=== PATIENT | female | born 1980 | race Caucasian/White ===

== ENCOUNTER 2016-03-16 10:56 | Emergency (ER) | payer MEDICAID ==
[2016-03-16 11:14] VITALS: BP 127/66
[2016-03-16] MEDS ORDERED: KETOROLAC TROMETHAMINE 60 MG/2 ML VIAL IM ONE ×2 (12:37→12:40)
--- NOTE | 2016-03-16 12:49 | ERNOTE ---
Back Pain ER HPI Time Seen by Provider: 03/16/16 12:28 Source: patient Exam Limitations: no limitations Immunizations: IMMUNIZATION HX Immunizations Up to Date Yes History of Influenza Vaccine No Hx Pneumococcal Vaccination No Allergies/Adverse Reactions: Allergies bee venom (honey bee) Allergy (Mild, Verified 03/16/16 11:14) ARMS SWELL UP tramadol Allergy (Unknown, Verified 03/16/16 11:14) Other Home Medications: HOME MEDICATIONS Ibuprofen [Motrin] 800 mg PO QID PRN 12/06/15 [Last Taken Unknown] Cyclobenzaprine HCl [Flexeril] 10 mg PO TID PRN #30 tab 03/16/16 [Last Taken Unknown] HYDROcodone/ACETAMINOPHEN [[place] 5-325] 1 each PO Q4H PRN #30 tablet 03/16/16 [ Last Taken Unknown] Naproxen [Naprosyn] 500 mg PO BID PRN #60 tab 03/16/16 [Last Taken Unknown] Phentermine HCl [Adipex-P] 37.5 mg PO DAILY 03/16/16 [Last Taken Unknown] Narrative: Two days ago the patient slipped on a steep grass hill, fell on her buttock and slid down the hill. She has been having low back pain ever since, tried ibuprofen and naproxen with minimal relieve, non today, denies any other injuries Date (Duration): 03/14/16 Timing: Reports: constant Quality/Severity: Reports: moderate, dullness Location of pain: Reports: lower back, radiating to lf thigh/leg - buttock Recent Injury?: Reports: yes Possible Precipitating Factor: Reports: fall/near fall Associated Symptoms: Denies: fever/chills, sweating, constipation/incontinence, nausea/vomiting, problems urinating, difficulty walking, numbess/weakness in legs Prior Treament: Denies: recently seen, similar symptoms before Review of Systems - Review of Systems Constitutional: Absent: recent illness, fever ENT: Absent: sore throat Respiratory: Absent: shortness of breath, other Gastrointestinal/Abdominal: Absent: nausea, abdominal pain Genitourinary: Present: no symptoms reported Skin: Absent: rash Neurological: Absent: weakness, numbness - Patient's Past Medical History Patient History - Medical: Kidney stone, Migraines Patient History - Cardiac/Respiratory: No pertinent hx Patient History - Cancer: No Hx of Cancer Patient History - Surgical Procedures: Other Patient History - Other: None LMP (Calendar): 08/21/15 - Family History Mother Family History - Medical: No pertinent hx Family History - Cardiac/Respiratory: Angina, CHF, Hypertension - Social History Living Situations: home Abuse History: No History of abuse Psych History: No pertinent hx Alcohol Use: none Drug Use: none - Immunizations Immunizations Up to Date: Yes Hx Pneumococcal Vaccination: No History of Influenza Vaccine: No Physical Exam - Physical Exam General Appearance: Present: wd/wn, alert, no apparent distress Neck: Present: normal inspection, nontender Respiratory: Present: no respiratory distress, normal breath sounds, lungs clear Cardiovascular/Chest: Present: regular rate, rhythm, no murmur Back Exam: Present: normal inspection, vertebral tenderness - minimal lower back , more tender on right paravertebral. Absent: decreased range of motion Extremity Exam: Present: normal inspection, non-tender, no edema, normal range of motion Neurological Exam: Present: alert, oriented, normal mood/affect, no motor/ sensory deficits Skin Exam: Present: normal color, warm/dry ED Progress - Vital Signs Patient's Vital Signs:: I have reviewed the patient's vital signs. Vital Signs: Vital Signs 03/16/16 11:09 Temperature 36.6 C Pulse Rate 85 Respiratory 12 Rate Blood Pressure 127/66 O2 Sat by Pulse 99 Oximetry - X-Ray X-Ray #1 X-Ray: lumbosacral - no acute osseous finding, stable disc space narrowing Interpretation: Reviewed by me - Progress/Reassessment Chief Complaint: Back Pain Departure Clinical Impression: Low back strain Qualifiers: Encounter type: initial encounter Qualified Code(s): S39.012A - Strain of muscle, fascia and tendon of lower back, initial encounter - Departure Disposition: Home self-care Condition: Good Instructions: Low Back Strain With Rehab-SportsMed Additional Instructions: call your doctor for a follow up appointment Referrals: Gurwinder Hawthorne DO [Primary Care Provider] - Prescriptions: Cyclobenzaprine HCl [Flexeril] 10 mg PO TID PRN #30 tab PRN Reason: MUSCLE SPASMS HYDROcodone/ACETAMINOPHEN [[place] 5-325] 1 each PO Q4H PRN #30 tablet PRN Reason: Pain Naproxen [Naprosyn] 500 mg PO BID PRN #60 tab PRN Reason: Pain
== END 2016-03-16 12:56 | disposition home or self-care (01) ==
LOC: ER 10:56
DX: S39.012A Strain of muscle, fascia and tendon of lower back, initial encounter (principal); Z87.442 Personal history of urinary calculi; W17.81XA Fall down embankment (hill), initial encounter

== ENCOUNTER 2016-05-06 11:31 | Day surgery (SDC) | payer MEDICAID ==
[~2016-05-06 11:31] MED LIST: NORMAL SALINE 1,000 ML IV PRN
--- OUTSIDE RECORDS SUMMARY | 2016-05-06 11:34 | XMS REPORT | Continuity of Care Document ---
:1980 Author Organization [facility] ([facility]) Address [address] [place] [address] Phone [phone] Care Team Providers Name Role Phone Gurwinder Hawthorne Primary Care Provider [phone] Source Comments This disclosure is being made pursuant to the Care Everywhere program, applicable federal and state laws, and may not contain all informaitonavailable regarding this patient.[facility] ([facility]) Active Allergies and Adverse Reactions Allergen Noted Date Severity Reactions Comments Bee Stings 08/11/2013 Unknown Current Medications No known medications Active Problems Problem Noted Date 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 S/P endometrial ablation 04/12/2015 Vaginal yeast infection - 08/28/14 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 Vulvar irritation 08/28/2014 Lichen simplex 08/28/2014 Levator spasm 08/28/2014 Hx: UTI (urinary tract infection) 08/28/2014 Nephrolithiasis 08/12/2013 Social History Tobacco Use Types Packs/Day Years Used Date Current Every Day Smoker Cigarettes 1 20 Smokeless Tobacco: Never Used Alcohol Use Drinks/Week oz/Week Comments No 2 to 3 times/year Last Filed Vital Signs Vital Sign Reading Time Taken Blood Pressure 129/71 05/13/2015 1:55 PM CDT Pulse 83 05/13/2015 1:55 PM CDT Temperature 36.3 C (97.3 F) 08/28/2014 1:32 PM CDT Respiratory Rate 16 08/12/2013 8:00 AM CDT Height 1.575 m (5' 2") 05/13/2015 1:55 PM CDT Weight 61.1 kg (134 lb 11.2 oz) 05/13/2015 1:55 PM CDT Body Mass Index 24.63 05/13/2015 1:55 PM CDT Oxygen Saturation 98% 08/12/2013 8:00 AM CDT Plan of Care Health Maintenance Due Date Last Done Comments Hepatitis B Vaccine (1 of 3 - Primary Series) 1980 Tdap Vaccine 1989 Lipid Disorder Screening 1996 MMR Vaccine 1996 Td Vaccine 1996 Pneumococcal Vaccine (1 of 1 - PPSV23) 1997 Cervical Cancer Screening 2008 03/07/2002 Influenza Vaccine: Seasonal (#1) 09/09/2015 Results from Last 3 Months Not on file
[2016-05-06] MEDS ORDERED: NORMAL SALINE 1,000 ML IV ONE (12:23)
--- NOTE | 2016-05-06 13:32 | OR ---
Operative Report - Dictated Report Narrative: Location: Main OR Anesthesia: General Preoperative diagnosis: Bilateral renal stone(s) Postoperative diagnosis: same Procedure: #1 Right ESWL Indications: 35-year-old recurrent stone former with bilateral renal stones right greater than left. Does have some right-sided symptomatology and an abnormal urinalysis microhematuria. Discussed options and elected above- mentioned procedure. Procedure: Consent obtained. Risks discussed. Brought to the operating room where general endotracheal anesthesia was induced. Timeout taken per protocol. Fluoroscopy was used to localize the stones in 2 planes. A total of 2000 shocks were delivered at a maximal energy of 24 kV. Stone was easily visible at the beginning of the case. Stone seemed to fall apart early in the shocking process. It was a lower pole stone so the fragments collected. Additional 1500 shocks were delivered to further fragment. Was comfortable at that point with the radiographic appearance. Per my discussion with patient no stent was placed. EBL: 0 cc Specimen: None Condition: Patient tolerated Important findings: Successfully treated right stone. Early fragmentation seemed to break very well. Follow Up: I will see her next Wednesday with KUB prior for left ESWL, possible stent, possible ureteroscopy. I would like for her to strain so that I can see how many fragments she has passed. Knows what to look out for, if does not pass any stone might hold off a while longer as I do not like to expose both kidneys the stone fragments for fear of obstruction.
[2016-05-06 14:54] VITALS: BP 128/78
== END 2016-05-06 11:32 | disposition home or self-care (01) ==
LOC: AMB 11:31
PROVIDERS: ATTEND Urology
PROC: 0TF3XZZ Fragmentation in Right Kidney Pelvis, External Approach (ICD-10-PCS; principal; 2016-05-06 13:30)
DX: N20.0 Calculus of kidney (principal); E66.9 Obesity, unspecified; Z68.24 Body mass index [BMI] 24.0-24.9, adult; F17.200 Nicotine dependence, unspecified, uncomplicated

== ENCOUNTER 2016-05-12 00:15 | Emergency (ER) | payer MEDICAID ==
--- NOTE | 2016-05-12 00:55 | ERNOTE ---
Back Pain ER HPI Presenting Symptoms: hx chronic back pain Time Seen by Provider: 05/12/16 00:52 Source: patient Exam Limitations: no limitations Immunizations: IMMUNIZATION HX Immunizations Up to Date Yes History of Influenza Vaccine No Hx Pneumococcal Vaccination No Allergies/Adverse Reactions: Allergies venom-honey bee [bee venom (honey bee)] Allergy (Mild, Verified 05/06/16 12:13) ARMS SWELL UP tramadol Adverse Reaction (Mild, Verified 05/06/16 12:13) Vomiting Home Medications: HOME MEDICATIONS HYDROcodone/ACETAMINOPHEN [[place] 5-325] 1 each PO Q6H PRN 05/05/16 [Last Taken Unknown] Ondansetron [Zofran Odt] 4 mg PO Q8H PRN #20 tab 05/06/16 [Last Taken Unknown] Phentermine HCl [Adipex-P] 37.5 mg PO DAILY 05/06/16 [Last Taken Unknown] Polyethylene Glycol 3350 [Miralax] 17 gm PO DAILY #1 bottle 05/06/16 [Last Taken Unknown] Cholecalciferol [Vitamin D] 1,000 unit MC DAILY 05/12/16 [Last Taken Unknown] Narrative: pt states she has had DDD for some time and has injection in her back scheduled for later this week. she also states she had had "surgery to remove kidney stones" last week. She cannot tell me if it was lithotripsy or if she had a cystoscopy/ ureteroscopy to remove them. She has been using Hydrocodone she received after that surgery to treat her back Timing: Reports: constant, getting worse Quality/Severity: Reports: moderate, aching Location of pain: Reports: lower back, no radiation Activities at Onset: Reports: none Recent Injury?: Reports: no Review of Systems - Review of Systems Constitutional: Present: no symptoms reported EYE: Present: no symptoms reported ENT: Present: no symptoms reported Respiratory: Present: no symptoms reported Cardiology: Present: no symptoms reported Gastrointestinal/Abdominal: Absent: nausea, vomiting Genitourinary: Absent: frequency, pain, dysuria Musculoskeletal: Present: See HPI Skin: Present: no symptoms reported Neurological: Present: no symptoms reported Endocrine: Present: no symptoms reported Hematologic/Lymphatic: Present: no symptoms reported Psych: Present: no symptoms reported - Patient's Past Medical History Patient History - Medical: Kidney stone, Migraines, Other Patient History - Cardiac/Respiratory: No pertinent hx Patient History - Cancer: No Hx of Cancer Patient History - Surgical Procedures: Other Patient History - Other: None LMP (females 10-50): 3 weeks LMP (Calendar): 04/08/16 - Family History Mother Family History - Medical: No pertinent hx Family History - Cardiac/Respiratory: Angina, CHF, Hypertension Family History - Cancer: No pertinent family hx - Social History Living Situations: significant other Abuse History: No History of abuse Psych History: No pertinent hx Smoking Status: Current every day smoker Have you smoked in the past 12 months: Yes Alcohol Use: rarely Drug Use: none - Immunizations Immunizations Up to Date: Yes Hx Pneumococcal Vaccination: No History of Influenza Vaccine: No Physical Exam - Physical Exam General Appearance: Present: wd/wn, alert, no apparent distress Eye Exam: Normal inspection: bilateral Ears, Nose, Throat: Present: normal ENT inspection Neck: Present: normal inspection, nontender, supple Respiratory: Present: no respiratory distress Gastrointestinal/Abdominal: Present: normal bowel sounds, nontender, nondistended Back Exam: Present: normal range of motion, no CVA tenderness, no vertebral tenderness, muscle spasm - mild Extremity Exam: Present: normal inspection, non-tender, normal range of motion, no edema Neurological Exam: Present: alert, oriented, normal mood/affect, no motor/ sensory deficits Skin Exam: Present: normal color, warm/dry Lymphatic Exam: Present: no adenopathy ED Progress - Vital Signs Vital Signs: Vital Signs 05/12/16 05/12/16 00:15 00:20 Temperature 36.1 C L 37.0 C Pulse Rate 88 Respiratory 16 Rate Blood Pressure 124/77 141/77 O2 Sat by Pulse 100 Oximetry - Progress/Reassessment Chief Complaint: Back Pain Departure Clinical Impression: Low back pain Qualifiers: Chronicity: acute Back pain laterality: right Sciatica presence: without sciatica Qualified Code(s): M54.5 - Low back pain - Departure Disposition: Home self-care Condition: Good Instructions: Heat Therapy, Cryotherapy Additional Instructions: follow up with your pain medicine doctor as scheduled. Referrals: Gurwinder Hawthorne DO [Primary Care Provider] -
--- OUTSIDE RECORDS SUMMARY | 2016-05-12 01:35 | XMS REPORT | Continuity of Care Document ---
:1980 Author Organization [facility] ([facility]) Address [address] [place] [address] Phone [phone] Care Team Providers Name Role Phone Gurwinder Hawthorne Primary Care Provider [phone] Source Comments This disclosure is being made pursuant to the Care Everywhere program, applicable federal and state laws, and may not contain all informaitonavailable regarding this patient.[facility] ([facility]) Active Allergies and Adverse Reactions Allergen Noted [...]
[2016-05-12 01:44] VITALS: BP 139/73
[2016-05-12] MEDS ORDERED: ORPHENADRINE CITRATE 30 MG/ML VIAL IM ONE (02:02)
[2016-05-12] MEDS ORDERED: ORPHENADRINE CITRATE 30 MG/ML VIAL ONE (02:06)
== END 2016-05-12 02:18 | disposition home or self-care (01) ==
LOC: ER 00:15
DX: M54.5 Low back pain (principal); Z72.0 Tobacco use

== ENCOUNTER 2016-05-13 12:32 | Day surgery (SDC) | payer MEDICAID ==
--- OUTSIDE RECORDS SUMMARY | 2016-05-13 12:35 | XMS REPORT | Continuity of Care Document ---
:1980 Author Organization [facility] ([facility]) Address [address] [place] [address] Phone [phone] Care Team Providers Name Role Phone Gurwinder Hawthorne Primary Care Provider [phone] Source Comments This disclosure is being made pursuant to the Care Everywhere program, applicable federal and state laws, and may not contain all informaitonavailable regarding this patient.[facility] ([facility]) Active Allergies and Adverse Reactions Allergen Noted [...]
--- NOTE | 2016-05-13 14:39 | OR ---
Operative Report - Dictated Report Narrative: Location: Main OR Anesthesia: General Preoperative diagnosis: Left stone(s) Postoperative diagnosis: same Procedure: #1 left ESWL Indications: 35-year-old recurrent stone former post right ESWL with good results here for ESWL on the left side. Procedure: Consent obtained. Risks discussed. Brought to the operating room where general endotracheal anesthesia was induced. Timeout taken per protocol. Fluoroscopy was used to localize the stones in 2 planes. A total of 3000 shocks were delivered at a maximal energy of 24 kV. Stone was easily visible at the beginning of the case. There was radiographic evidence of fragmentation at the conclusion of the case. EBL: 0 cc Specimen: None Condition: Patient tolerated Important findings: Successfully treated left stone with radiographic evidence of fragmentation. This side is a little bit bigger. Nose what to look out for. Follow Up: I arranged for a 6 month KUB/UA. I have offered 24 hour collection in the past does not usually follow-up her follow through. If becomes interested can call and we will arrange. CHEST: Nontender throughout without deformity or crepitance. No retractions or use of accessory muscles.
[2016-05-13] MEDS ORDERED: RINGERS SOLUTION,LACTATED 1,000 ML IV ONE (14:45)
[2016-05-13 15:57] VITALS: BP 147/77
== END 2016-05-13 12:33 | disposition home or self-care (01) ==
LOC: AMB 12:32
PROVIDERS: ATTEND Urology
PROC: 0TF4XZZ Fragmentation in Left Kidney Pelvis, External Approach (ICD-10-PCS; principal; 2016-05-13 14:20)
DX: N20.0 Calculus of kidney (principal); E66.9 Obesity, unspecified; Z68.24 Body mass index [BMI] 24.0-24.9, adult; F17.200 Nicotine dependence, unspecified, uncomplicated

== ENCOUNTER 2016-09-24 02:13 | Emergency (ER) | payer MEDICAID ==
[2016-09-24] MEDS ORDERED: diphenhydrAMINE HCL 50 MG/ML VIAL IV ONE (02:34)
[2016-09-24] MEDS ORDERED: METHYLPREDNISOLONE SOD SUCC/PF 125 MG/2 ML VIAL IM ONE (02:34)
[2016-09-24] MEDS ORDERED: FAMOTIDINE 10 MG/ML VIAL IV ONE ×2 (02:34→02:39)
[2016-09-24] MEDS ORDERED: diphenhydrAMINE HCL 50 MG/ML VIAL ONE (02:39)
[2016-09-24] MEDS ORDERED: METHYLPREDNISOLONE SOD SUCC/PF 125 MG/2 ML VIAL ONE (02:39)
--- NOTE | 2016-09-24 02:42 | ERNOTE ---
Allergy Symptoms - ER Presenting Symptoms: itching Time Seen by Provider: 09/24/16 02:33 Source: patient Exam Limitations: no limitations Immunizations: IMMUNIZATION HX Immunizations Up to Date Yes History of Influenza Vaccine No Hx Pneumococcal Vaccination No Allergies/Adverse Reactions: Allergies venom-honey bee [bee venom (honey bee)] Allergy (Mild, Verified 09/24/16 02:23) ARMS SWELL UP tramadol Adverse Reaction (Mild, Verified 09/24/16 02:23) Vomiting Home Medications: HOME MEDICATIONS Methylprednisolone [Medrol Dosepak] 4 mg PO DAILY #21 tab.ds.pk 09/24/16 [Last Taken Unknown] - History of Present Illness Narrative: Pt was having some back and tooth pain. She took a pain pill that she had for her back then took a levaquin she had left over from one year ago and then took aleve PM. Soon after she began to have itching in her throat and on her chest. 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 Location skin rash/itching: Present: trunk Identified cause?: No Exposure: Present: antibiotic, NSAID, other med - pain medication Similar symptoms previously: No Review of Systems - Review of Systems Constitutional: Absent: recent illness EYE: Present: no symptoms reported ENT: Present: other - dental pain Respiratory: Absent: shortness of breath Cardiology: Absent: chest pain Gastrointestinal/Abdominal: Present: no symptoms reported Genitourinary: Present: no symptoms reported Musculoskeletal: Present: back pain - from an injury last week, muscle pain Skin: Present: See HPI Neurological: Absent: headache, dizziness/light-headedness Endocrine: Present: no symptoms reported Hematologic/Lymphatic: Present: no symptoms reported Psych: Present: no symptoms reported - Patient's Past Medical History Patient History - Medical: Kidney stone, Migraines, Other Patient History - Cardiac/Respiratory: No pertinent hx Patient History - Cancer: No Hx of Cancer Patient History - Surgical Procedures: Other, Urology Patient History - Other: None LMP (Calendar): 04/08/16 - Family History Mother Family History - Medical: No pertinent hx Family History - Cardiac/Respiratory: Angina, CHF, Hypertension Family History - Cancer: No pertinent family hx - Social History Living Situations: home Abuse History: No History of abuse Psych History: No pertinent hx Smoking Status: Current every day smoker Alcohol Use: rarely Drug Use: none - Immunizations Immunizations Up to Date: Yes Hx Pneumococcal Vaccination: No History of Influenza Vaccine: No Physical Exam - Physical Exam General Appearance: Present: wd/wn, alert, no apparent distress Head Exam: Present: normal inspection, no evidence of injury Eye Exam: Normal inspection: bilateral Ears, Nose, Throat: Present: normal ENT inspection, normal pharynx Neck: Present: supple, full range of motion, other - erythematous, papular rash on anterior neck Respiratory: Present: no respiratory distress, normal breath sounds, lungs clear Cardiovascular/Chest: Present: regular rate, rhythm, no murmur Neurological Exam: Present: alert, oriented, normal mood/affect Skin Exam: Present: skin rash - erythematous fine papular rash on chest and upper abdomen Lymphatic Exam: Present: no adenopathy ED Progress - Vital Signs Vital Signs: Vital Signs 09/24/16 09/24/16 02:19 02:28 Temperature 36.8 C Pulse Rate 102 H Respiratory 20 18 Rate Blood Pressure 168/101 O2 Sat by Pulse 100 100 Oximetry - Progress/Reassessment Chief Complaint: Allergic Reaction Progress Note-Subjective: 09/24/16 03:30 Pt feels much better after IV solumedrol and Pepcid. discussed Rx for medrol dose pack. Departure Clinical Impression: Allergic reaction Qualifiers: Encounter type: initial encounter Qualified Code(s): T78.40XA - Allergy, unspecified, initial encounter - Departure Disposition: Home self-care Condition: Good Instructions: Drug Allergy, [id number] Referrals: Gurwinder Hawthorne DO [Primary Care Provider] - Prescriptions: Methylprednisolone [Medrol Dosepak] 4 mg PO DAILY #21 tab.ds.pk
[2016-09-24] MEDS ORDERED: METHYLPREDNISOLONE SOD SUCC/PF 125 MG/2 ML VIAL IV ONE (02:46)
--- OUTSIDE RECORDS SUMMARY | 2016-09-24 02:59 | XMS REPORT | Summary of Care ---
:1980 Author Organization [facility] Care Team Providers Name Role Phone Gurwinder Hawthorne Jaren Primary Care Physician Encounter Date(s): 05/14/16 - 05/14/[address] [address] Discharge Disposition: Discharged to Home or Self Care Attending Physician: Curly Cortez MD Admitting Physician: Curly Cortez MD Vital Signs No data available for this section Problem List Condition Effective Dates Status Health Status Informant Personal history of nicotine Active dependence(Confirmed) CALCULUS OF KIDNEY(Confirmed) Active Renal colic(Confirmed) Active Allergies, Adverse Reactions, Alerts Substance Reaction Severity Status traMADol [id number] 19:24:09<$> Moderate Active Medications Bactrim DS 800 mg-160 mg oral tablet 1 tab(s), Oral, BID, D/C current antibiotic and start this antibiotic JAMEL, X 5 days, # 10 tab(s), 0 Refill(s), Start Date: 08/19/15 9:23:00 CDT, Pharmacy: [facility] [place], [place] Special Instructions: D/C current antibiotic and start this antibiotic JAMEL Start Date: 08/19/15 Stop Date: 08/24/15 Status: CompletedBoric Acid 600mg Vag. Supp. use 1 SUPPOSITORY VAGINALLY once DAILY Special Instructions: use 1 SUPPOSITORY VAGINALLY once DAILY Start Date: 04/29/16 Status: OrderedCipro 500 mg oral tablet tab(s), Oral, q12hr interval, 0 Refill(s) Start Date: 08/16/13 Stop Date: 07/23/14 Status: CompletedDiflucan 150 mg oral tablet 1 tab(s), Oral, ONETIME, # 1 tab(s), 0 Refill(s), Start Date: 07/23/14 17:06:00 CDT, Pharmacy: [facility], [place] Start Date: 07/23/14 Stop Date: 12/20/14 Status: CompletedDilaudid 2 mg oral tablet 1 tab(s), Oral, q6hr interval, PRN pain severe 8-10, # 30 tab(s), 0 Refill(s), Start Date: 09/03/15 13:34:00 CDT, Pharmacy: [facility], [place] Start Date: 09/03/15 Stop Date: 09/26/15 Status: DiscontinuedDilaudid 2 mg oral tablet 1 tab(s), Oral, q6hr interval, PRN pain severe 8-10, # 30 tab(s), 0 Refill(s), Start Date: 08/15/15 11:40:00 CDT, Pharmacy: [facility], [place] Start Date: 08/15/15 Stop Date: 09/03/15 Status: DiscontinuedDitropan 5 mg oral tablet 1 tab(s), Oral, TID, PRN bladder spasm, cramping, severe stent pain, # 30 tab(s) , 3 Refill(s), Start Date: 08/15/15 11:40:00 CDT, Pharmacy: [facility], [place] Start Date: 08/15/15 Stop Date: 09/26/15 Status: DiscontinuedFlomax 0.4 mg oral capsule 1 cap(s), Oral, Daily, # 90 cap(s), 0 Refill(s), Start Date: 01/30/16 13:27:00 DENTAL OFFICE COORDINATOR, Pharmacy: [place], [place] Start Date: 01/30/16 Status: Orderedfluconazole 200 mg oral tablet 1 tab(s), Oral, Daily, # 7 tab(s), 0 Refill(s), Start Date: 08/14/15 12:44:00 CDT Start Date: 08/14/15 Stop Date: 08/15/15 Status: DiscontinuedHYDROcodone-acetaminophen 5 mg-325 mg oral tablet 1 tab(s), Oral, q6hr, # 24 tab(s), 0 Refill(s), Start Date: 09/26/15 11:36:00 CDT, Pharmacy: [facility], [place] Start Date: 09/26/15 Status: OrderedHYDROcodone-acetaminophen 5 mg-325 mg oral tablet 1 tab(s), Oral, q6hr, # 30 tab(s), 0 Refill(s), Start Date: 07/27/14 12:01:00 CDT Start Date: 07/27/14 Stop Date: 12/20/14 Status: CompletedHYDROcodone-acetaminophen 5 mg-325 mg oral tablet 1 tab(s), Oral, q4hr, PRN for pain, 0 Refill(s), Start Date: 08/14/15 12:45:00 CDT Start Date: 08/14/15 Stop Date: 08/15/15 Status: DiscontinuedKeflex 500 mg oral capsule 1 cap(s), Oral, TID, # 21 cap(s), 0 Refill(s), Start Date: 07/23/14 16:52:00 CDT , Pharmacy: [place], [place] Start Date: 07/23/14 Stop Date: 12/20/14 Status: CompletedLevaquin 500 mg oral tablet 1 tab(s), Oral, Daily, # 7 tab(s), 0 Refill(s), Start Date: 08/15/15 11:40:00 CDT, Pharmacy: [place], [place] Start Date: 08/15/15 Stop Date: 09/03/15 Status: Discontinuedmeloxicam 15 mg oral tablet TAKE ONE TABLET BY MOUTH DAILY Special Instructions: TAKE ONE TABLET BY MOUTH DAILY Start Date: 04/29/16 Status: OrderedMiraLax oral powder for reconstitution 17 gm=, Oral, Daily, # 527 gm, 0 Refill(s), Start Date: 08/15/15 11:40:00 CDT, Pharmacy: [place], [place] Start Date: 08/15/15 Stop Date: 09/26/15 Status: Discontinuedsulfamethoxazole-trimethoprim 800 mg-160 mg oral tablet 1 tab(s), Oral, BID, # 14 tab(s), 0 Refill(s), Start Date: 08/14/15 12:45:00 CDT Start Date: 08/14/15 Stop Date: 08/15/15 Status: DiscontinuedtraMADol 50 mg oral tablet 1 tab(s), Oral, q4hr, PRN pain mild 1-3, # 30 tab(s), 0 Refill(s), Start Date: 08/15/15 11:40:00 CDT, Pharmacy: [place], [place] Start Date: 08/15/15 Stop Date: 09/26/15 Status: DiscontinuedTylenol with Codeine 150/15mg 1/2 of 300/30mg oral tablet 1 tab(s), Oral, q4hr interval, PRN as needed for pain, 0 Refill(s), Start Date: 08/14/15 12:45:00 CDT Start Date: 08/14/15 Stop Date: 08/15/15 Status: DiscontinuedVitamin D2 50,000 intl units (1.25 mg) oral capsule TAKE ONE CAPSULE BY MOUTH ONCE A WEEK FOR EIGHT WEEKS Special Instructions: TAKE ONE CAPSULE BY MOUTH ONCE A WEEK FOR EIGHT WEEKS Start Date: 04/29/16 Status: OrderedZofran 4 mg oral tablet 1 tab(s), Oral, TID, PRN nausea/vomiting, # 10 tab(s), 0 Refill(s), Start Date: 12/20/14 15:00:00 DENTAL OFFICE COORDINATOR, Pharmacy: [place], [place] Start Date: 12/20/14 Stop Date: 08/15/15 Status: DiscontinuedZofran 4 mg oral tablet 1 tab(s), Oral, q8hr interval, PRN as needed for nausea/vomiting, # 30 tab(s), 0 Refill(s), Start Date: 01/30/16 13:27:00 DENTAL OFFICE COORDINATOR, Pharmacy: [place], [place] Start Date: 01/30/16 Status: Ordered Results No data available for this section Immunizations No data available for this section Procedures Procedure Date Related Diagnosis Body Site Cystoureteroscopy With Lithotripsy (Right)1 09/03/15 Cystoureteroscopy With Lithotripsy (Right)2 08/15/15 Operative procedure on knee 10/2013 Breast augmentation 2001 Excision of cyst3 1auto-populated from documented surgical [id number] from documented surgical [id number] wrist Social History No data available for this section Assessment and Plan No data available for this section
--- OUTSIDE RECORDS SUMMARY | 2016-09-24 02:59 | XMS REPORT | Summary of Care ---
:1980 Author Organization [facility] Address [address] [place] [address] Care Team Providers Name Role Phone Gurwinder Hawthorne Primary Care Physician Encounter Date(s): 05/04/16 - 05/04/16 [facility] [address] [place], [place] [address] Discharge Diagnosis: Lumbosacral spine instability Discharge Diagnosis: Multilevel neural foraminal stenosis Discharge Diagnosis: Right leg pain Discharge Disposition: 01 Discharged to Home or Self Care Attending Physician: Curly Cortez MD Referring Physician: Gurwinder Hawthorne DO Vital Signs Most recent to oldest [Reference Range]: 1 Peripheral Pulse Rate [60-100 bpm] 89 bpm (05/04/16 3:11 PM) Blood Pressure [90-130/60-90 mmHg] 123/83mmHg (05/04/16 3:11 PM) Mean Arterial Pressure, Cuff 96 mmHg (05/04/16 3:11 PM) Most recent to oldest [Reference Range]: 1 Height/Length Measured 157 cm (05/04/16 3:11 PM) Weight Dosing 59.60 kg1 (05/04/16 3:18 PM) Weight Measured 59.6 kg (05/04/16 3:11 PM) BSA Measured 1.6 m2 (05/04/16 3:11 PM) Body Mass Index Measured 24.18 kg/m2 (05/04/16 3:11 PM) 1Result Comment: This result was because the dosing weight was either not entered or it is>30 days old. This result is based off: Weight Measured May 04, 2016 15:11:00 CDT by Karina aWters CMA Problem List Condition Effective Dates Status Health Status Informant Personal history of nicotine Active dependence(Confirmed) CALCULUS OF KIDNEY(Confirmed) Active Renal colic(Confirmed) Active Allergies, Adverse Reactions, Alerts Substance Reaction Severity Status traMADol [id number] 19:24:09<$> Moderate Active Medications Bactrim DS 800 mg-160 mg oral tablet 1 tab(s), Oral, BID, D/C current antibiotic and start this antibiotic JAMEL, X 5 days, # 10 tab(s), 0 Refill(s), Start Date: 08/19/15 9:23:00 CDT, Pharmacy: [place], [place] Special Instructions: D/C current antibiotic and [...] Refill(s), Start Date: 07/23/14 17:06:00 CDT, Pharmacy: [place], [place] Start Date: 07/23/14 Stop Date: 12/20/14 Status: CompletedDilaudid 2 mg oral tablet 1 tab(s), Oral, q6hr interval, PRN pain severe 8-10, # 30 tab(s), 0 Refill(s), Start Date: 09/03/15 13:34:00 CDT, Pharmacy: [place], [place] Start Date: 09/03/15 Stop Date: 09/26/15 Status: DiscontinuedDilaudid 2 mg oral tablet 1 tab(s), Oral, q6hr interval, PRN pain severe 8-10, # 30 tab(s), 0 Refill(s), Start Date: 08/15/15 11:40:00 CDT, Pharmacy: [place], [place] Start Date: 08/15/15 Stop Date: 09/03/15 Status: DiscontinuedDitropan 5 mg oral tablet 1 tab(s), Oral, TID, PRN bladder spasm, cramping, severe stent pain, # 30 tab(s) , 3 Refill(s), Start Date: 08/15/15 11:40:00 CDT, Pharmacy: [place], [place] Start Date: 08/15/15 Stop Date: 09/26/15 Status: DiscontinuedFlomax 0.4 mg oral capsule 1 cap(s), Oral, Daily, # 90 cap(s), 0 Refill(s), Start Date: 01/30/16 13:27:00 MID 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 BUSINESS 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, Pharmacy: [place], [place] Start Date: 01/30/16 Status: Orderedfluconazole 200 mg oral tablet 1 tab(s), Oral, Daily, # 7 tab(s), 0 Refill(s), Start Date: 08/14/15 12:44:00 CDT Start Date: 08/14/15 Stop Date: 08/15/15 Status: DiscontinuedHYDROcodone-acetaminophen 5 mg-325 mg oral tablet 1 tab(s), Oral, q6hr, # 24 tab(s), 0 Refill(s), Start Date: 09/26/15 11:36:00 CDT, Pharmacy: [place], [place] Start Date: 09/26/15 Status: OrderedHYDROcodone-acetaminophen 5 mg-325 [...] Start Date: 07/23/14 16:52:00 CDT , Pharmacy: [place], [place] Start Date: 07/23/14 Stop Date: 12/20/14 Status: CompletedLevaquin 500 mg oral tablet 1 tab(s), Oral, Daily, # 7 tab(s), 0 Refill(s), Start Date: 08/15/15 11:40:00 CDT, Pharmacy: [place], [place] Start Date: 08/15/15 Stop Date: 09/03/15 Status: Discontinuedmeloxicam 15 mg oral tablet TAKE ONE TABLET BY MOUTH DAILY Special Instructions: TAKE ONE TABLET BY MOUTH DAILY Start Date: 04/29/16 Status: OrderedMiraLax oral powder for reconstitution 17 gm=, Oral, Daily, # 527 gm, 0 Refill(s), Start Date: 08/15/15 11:40:00 CDT, Pharmacy: [place], [place] Start Date: 08/15/15 Stop Date: 09/26/15 Status: Discontinuedsulfamethoxazole-trimethoprim 800 mg-160 mg oral tablet 1 tab(s), Oral, BID, # 14 tab(s), 0 Refill(s), Start Date: 08/14/15 12:45:00 CDT Start Date: 08/14/15 Stop Date: 08/15/15 Status: DiscontinuedtraMADol 50 mg oral tablet 1 tab(s), Oral, q4hr, PRN pain mild 1-3, # 30 tab(s), 0 Refill(s), Start Date: 08/15/15 11:40:00 CDT, Pharmacy: [place], [place] Start Date: 08/15/15 Stop Date: 09/26/15 [...] tab(s), 0 Refill(s), Start Date: 12/20/14 15:00:00 MID LEVEL BUSINESS ANALYST, Pharmacy: [place], [place] Start Date: 12/20/14 Stop Date: 08/15/15 Status: DiscontinuedZofran 4 mg oral tablet 1 tab(s), Oral, q8hr interval, PRN as needed for nausea/vomiting, # 30 tab(s), 0 Refill(s), Start Date: 01/30/16 13:27:00 MID LEVEL BUSINESS ANALYST, Pharmacy: [place], [place] Start Date: 01/30/16 Status: Ordered Results No data available for this section Immunizations No data available for this section Procedures Procedure Date Related Diagnosis Body Site Cystoureteroscopy With Lithotripsy (Right)1 09/03/15 Cystoureteroscopy With Lithotripsy (Right)2 08/15/15 Operative procedure on knee 10/2013 Breast augmentation 2002 Excision of cyst3 1auto-populated from documented surgical [id number] from documented surgical [id number] wrist Social History No data available for this section Assessment and Plan No data available for this section
--- OUTSIDE RECORDS SUMMARY | 2016-09-24 02:59 | XMS REPORT | Summary of Care ---
:1980 Author Organization [facility] Address [address] [place] [id number] Care Team Providers Name Role Phone Gurwinder Hawthorne Primary Care Physician Encounter Date(s): 04/29/16 - 04/29/[address] [address] Discharge Disposition: 01 Discharged to Home or Self Care Attending Physician: Jalen Rubio MD Admitting Physician: Jalen Rubio MD Vital Signs No data available for this section Problem List Condition Effective Dates Status Health Status Informant Personal history of nicotine Active dependence(Confirmed) CALCULUS OF KIDNEY(Confirmed) Active Renal colic(Confirmed) Active Allergies, Adverse Reactions, Alerts Substance Reaction Severity Status traMADol [id number] 19:24:09<$> Moderate Active Medications Bactrim DS 800 mg-160 mg oral tablet 1 tab(s), Oral, BID, D/C current antibiotic and start this antibiotic JAMEL, X 5 days, # 10 tab(s), 0 Refill(s), Start Date: 08/19/15 9:23:00 CDT, Pharmacy: [facility] [place], [place] Special Instructions: D/C current antibiotic and [...] Refill(s), Start Date: 07/23/14 17:06:00 CDT, Pharmacy: [place], [place] Start Date: 07/23/14 Stop Date: 12/20/14 Status: CompletedDilaudid 2 mg oral tablet 1 tab(s), Oral, q6hr interval, PRN pain severe 8-10, # 30 tab(s), 0 Refill(s), Start Date: 09/03/15 13:34:00 CDT, Pharmacy: [place], [place] Start Date: 09/03/15 Stop Date: 09/26/15 Status: DiscontinuedDilaudid 2 mg oral tablet 1 tab(s), Oral, q6hr interval, PRN pain severe 8-10, # 30 tab(s), 0 Refill(s), Start Date: 08/15/15 11:40:00 CDT, Pharmacy: [place] Start Date: 08/15/15 Stop Date: 09/03/15 Status: DiscontinuedDitropan 5 mg oral tablet 1 tab(s), Oral, TID, PRN bladder spasm, cramping, severe stent pain, # 30 tab(s) , 3 Refill(s), Start Date: 08/15/15 11:40:00 CDT, Pharmacy: [place], [place] Start Date: 08/15/15 Stop Date: 09/26/15 Status: DiscontinuedFlomax 0.4 mg oral capsule 1 cap(s), Oral, Daily, # 90 cap(s), 0 Refill(s), Start Date: 01/30/16 13:27:00 ENGINEERING TEST SPECIALIST, Pharmacy: [place] Start Date: 01/30/16 Status: Orderedfluconazole 200 mg oral tablet 1 tab(s), Oral, Daily, # 7 tab(s), 0 Refill(s), Start Date: 08/14/15 12:44:00 CDT Start Date: 08/14/15 Stop Date: 08/15/15 Status: DiscontinuedHYDROcodone-acetaminophen 5 mg-325 mg oral tablet 1 tab(s), Oral, q6hr, # 24 tab(s), 0 Refill(s), Start Date: 09/26/15 11:36:00 CDT, Pharmacy: [place] Start Date: 09/26/15 Status: OrderedHYDROcodone-acetaminophen 5 [...] Start Date: 07/23/14 16:52:00 CDT , Pharmacy: [place] Start Date: 07/23/14 Stop Date: 12/20/14 Status: CompletedLevaquin 500 mg oral tablet 1 tab(s), Oral, Daily, # 7 tab(s), 0 Refill(s), Start Date: 08/15/15 11:40:00 CDT, Pharmacy: [place] Start Date: 08/15/15 Stop Date: 09/03/15 Status: Discontinuedmeloxicam 15 mg oral tablet TAKE ONE TABLET BY MOUTH DAILY Special Instructions: TAKE ONE TABLET BY MOUTH DAILY Start Date: 04/29/16 Status: OrderedMiraLax oral powder for reconstitution 17 gm=, Oral, Daily, # 527 gm, 0 Refill(s), Start Date: 08/15/15 11:40:00 CDT, Pharmacy: [place] Start Date: 08/15/15 Stop Date: 09/26/15 Status: Discontinuedsulfamethoxazole-trimethoprim 800 mg-160 mg oral tablet 1 tab(s), Oral, BID, # 14 tab(s), 0 Refill(s), Start Date: 08/14/15 12:45:00 CDT Start Date: 08/14/15 Stop Date: 08/15/15 Status: DiscontinuedtraMADol 50 mg oral tablet 1 tab(s), Oral, q4hr, PRN pain mild 1-3, # 30 tab(s), 0 Refill(s), Start Date: 08/15/15 11:40:00 CDT, Pharmacy: [place] Start Date: 08/15/15 Stop Date: 09/26/15 [...] tab(s), 0 Refill(s), Start Date: 12/20/14 15:00:00 ENGINEERING TEST SPECIALIST, Pharmacy: [place] Start Date: 12/20/14 Stop Date: 08/15/15 Status: DiscontinuedZofran 4 mg oral tablet 1 tab(s), Oral, q8hr interval, PRN as needed for nausea/vomiting, # 30 tab(s), 0 Refill(s), Start Date: 01/30/16 13:27:00 ENGINEERING TEST SPECIALIST, Pharmacy: [place] Start Date: 01/30/16 Status: Ordered Results Patient Viewable Results Most recent to oldest [Reference Range]: 1 UA Color Yellow *NA* (04/29/16 11:08 AM) Urine Clarity Clear *NA* (04/29/16 11:08 AM) Specific [place] [1.000-1.060] 1.017 (04/29/16 11:08 AM) Urine pH [5-8] 6 (04/29/16 11:08 AM) Ketones Negative (04/29/16 11:08 AM) Bilirubin [Negative] Negative (04/29/16 11:08 AM) Urine Protein [Negative] Negative (04/29/16 11:08 AM) Glucose [Negative] Negative (04/29/16 11:08 AM) Urine HGB [Negative] 1+ *ABN* (04/29/16 11:08 AM) Urobilinogen <2.0 *NA* (04/29/16 11:08 AM) Nitrite [Negative] Negative (04/29/16 11:08 AM) Leuk Esterase [Negative] Negative (04/29/16 11:08 AM) UA Ascorbic Acid [Negative] Negative (04/29/16 11:08 AM) Urine WBC [0-5] 0-5 (04/29/16 11:08 AM) Urine RBC [0-2] 21-50 *ABN* (04/29/16 11:08 AM) Squamous Epi [0-5] 6-10 *ABN* (04/29/16 11:08 AM) Bacteria Trace *ABN* (04/29/16 11:08 AM) Mucus 1+ (04/29/16 11:08 AM) Immunizations No data available for this section Procedures Procedure Date Related Diagnosis Body Site Cystoureteroscopy With Lithotripsy (Right)1 09/03/15 Cystoureteroscopy With Lithotripsy (Right)2 08/15/15 Operative procedure on knee 10/2013 Breast augmentation 2001 Excision of cyst3 1auto-populated from documented surgical [id number] from documented surgical [id number] wrist Social History No data available for this section Assessment and Plan No data available for this section
--- OUTSIDE RECORDS SUMMARY | 2016-09-24 02:59 | XMS REPORT | Summary of Care ---
:1980 Author Organization [facility] Address [address] [place] [address] Care Team Providers Name Role Phone Gurwinder Hawthorne Jaren Primary Care Physician Encounter Date(s): 04/29/16 - 04/29/16 [facility], [address] [place], [place] [address] Discharge Diagnosis: Personal history of nicotine dependence Discharge Diagnosis: CALCULUS OF KIDNEY Discharge Disposition: 01 Discharged to Home or Self Care Attending Physician: Jalen Rubio MD Referring Physician: Jalen Rubio MD Vital Signs Most recent to oldest [Reference Range]: 1 Blood Pressure [90-130/60-90 mmHg] 142/78mmHg *HI* (04/29/16 10:56 AM) Mean Arterial Pressure, Cuff 99 mmHg (04/29/16 10:56 AM) Most recent to oldest [Reference Range]: 1 Weight Dosing 66 kg (04/29/16 10:56 AM) Problem List Condition Effective Dates Status Health Status Informant Personal history of nicotine Active dependence(Confirmed) CALCULUS OF KIDNEY(Confirmed) Active Renal colic(Confirmed) Active Allergies, Adverse Reactions, Alerts Substance Reaction Severity Status traMADol [id number] 19:24:09<$> Moderate Active Medications Bactrim DS 800 mg-160 mg oral tablet 1 tab(s), Oral, BID, D/C current antibiotic and start this antibiotic JAMEL, X 5 days, # 10 tab(s), 0 Refill(s), Start Date: 08/19/15 9:23:00 CDT, Pharmacy: [facility] [place], [place] Special Instructions: D/C current antibiotic and [...] Refill(s), Start Date: 07/23/14 17:06:00 CDT, Pharmacy: [place], [place] Start Date: 07/23/14 Stop Date: 12/20/14 Status: CompletedDilaudid 2 mg oral tablet 1 tab(s), Oral, q6hr interval, PRN pain severe 8-10, # 30 tab(s), 0 Refill(s), Start Date: 09/03/15 13:34:00 CDT, Pharmacy: [place], [place] Start Date: 09/03/15 Stop Date: 09/26/15 Status: DiscontinuedDilaudid 2 mg oral tablet 1 tab(s), Oral, q6hr interval, PRN pain severe 8-10, # 30 tab(s), 0 Refill(s), Start Date: 08/15/15 11:40:00 CDT, Pharmacy: [place], [place] Start Date: 08/15/15 Stop Date: 09/03/15 Status: DiscontinuedDitropan 5 mg oral tablet 1 tab(s), Oral, TID, PRN bladder spasm, cramping, severe stent pain, # 30 tab(s) , 3 Refill(s), Start Date: 08/15/15 11:40:00 CDT, Pharmacy: [place], [place] Start Date: 08/15/15 Stop Date: 09/26/15 Status: DiscontinuedFlomax 0.4 mg oral capsule 1 cap(s), Oral, Daily, # 90 cap(s), 0 Refill(s), Start Date: 01/30/16 13:27:00 GLASS BEAD MAKER, Pharmacy: [place], [place] Start Date: 01/30/16 Status: Orderedfluconazole 200 mg oral tablet 1 tab(s), Oral, Daily, # 7 tab(s), 0 Refill(s), Start Date: 08/14/15 12:44:00 CDT Start Date: 08/14/15 Stop Date: 08/15/15 Status: DiscontinuedHYDROcodone-acetaminophen 5 mg-325 mg oral tablet 1 tab(s), Oral, q6hr, # 24 tab(s), 0 Refill(s), Start Date: 09/26/15 11:36:00 CDT, Pharmacy: [place] Start Date: 09/26/15 Status: OrderedHYDROcodone-acetaminophen 5 [...] Start Date: 07/23/14 16:52:00 CDT , Pharmacy: [place] Start Date: 07/23/14 Stop Date: 12/20/14 Status: CompletedLevaquin 500 mg oral tablet 1 tab(s), Oral, Daily, # 7 tab(s), 0 Refill(s), Start Date: 08/15/15 11:40:00 CDT, Pharmacy: [place] Start Date: 08/15/15 Stop Date: 09/03/15 Status: Discontinuedmeloxicam 15 mg oral tablet TAKE ONE TABLET BY MOUTH DAILY Special Instructions: TAKE ONE TABLET BY MOUTH DAILY Start Date: 04/29/16 Status: OrderedMiraLax oral powder for reconstitution 17 gm=, Oral, Daily, # 527 gm, 0 Refill(s), Start Date: 08/15/15 11:40:00 CDT, Pharmacy: [place] Start Date: 08/15/15 Stop Date: 09/26/15 Status: Discontinuedsulfamethoxazole-trimethoprim 800 mg-160 mg oral tablet 1 tab(s), Oral, BID, # 14 tab(s), 0 Refill(s), Start Date: 08/14/15 12:45:00 CDT Start Date: 08/14/15 Stop Date: 08/15/15 Status: DiscontinuedtraMADol 50 mg oral tablet 1 tab(s), Oral, q4hr, PRN pain mild 1-3, # 30 tab(s), 0 Refill(s), Start Date: 08/15/15 11:40:00 CDT, Pharmacy: [place] Start Date: 08/15/15 Stop Date: 09/26/15 [...] tab(s), 0 Refill(s), Start Date: 12/20/14 15:00:00 GLASS BEAD MAKER, Pharmacy: [place] Start Date: 12/20/14 Stop Date: 08/15/15 Status: DiscontinuedZofran 4 mg oral tablet 1 tab(s), Oral, q8hr interval, PRN as needed for nausea/vomiting, # 30 tab(s), 0 Refill(s), Start Date: 01/30/16 13:27:00 GLASS BEAD MAKER, Pharmacy: [place] Start Date: 01/30/16 Status: Ordered Results No data available for this section Immunizations No data available for this section Procedures Procedure Date Related Diagnosis Body Site Cystoureteroscopy With Lithotripsy (Right)1 09/03/15 Cystoureteroscopy With Lithotripsy (Right)2 08/15/15 Operative procedure on knee 10/2013 Breast augmentation 2001 Excision of cyst3 1auto-populated from documented surgical [id number] from documented surgical [id number] wrist Social History No data available for this section Assessment and Plan No data available for this section
--- OUTSIDE RECORDS SUMMARY | 2016-09-24 02:59 | XMS REPORT | Summary of Care ---
:1980 Author Organization [facility] Address [address] [place] [address] Care Team Providers Name Role Phone Gurwinder Hawthorne Jaren Primary Care Physician Encounter Date(s): 05/06/16 - 05/06/16 [facility], [address] [place], [place] [address] Discharge Diagnosis: CALCULUS OF KIDNEY Discharge Disposition: Discharged to Home or Self Care Attending Physician: Jalen Rubio MD Referring Physician: Jalen Rubio MD Vital Signs Most recent to oldest [Reference Range]: 1 Blood Pressure [90-130/60-90 mmHg] 148/80mmHg *HI* (05/06/16 12:02 PM) Mean Arterial Pressure, Cuff 103 mmHg (05/06/16 12:02 PM) Most recent to oldest [Reference Range]: 1 Height/Length Measured 157 cm (05/06/16 12:02 PM) Weight Dosing 59.6 kg (05/06/16 12:02 PM) Problem List Condition Effective Dates Status Health Status Informant Personal history of nicotine Active dependence(Confirmed) CALCULUS OF KIDNEY(Confirmed) Active Renal colic(Confirmed) Active Allergies, Adverse Reactions, Alerts Substance Reaction Severity Status traMADol [id number] 19:24:09<$> Moderate Active Medications Bactrim DS 800 mg-160 mg oral tablet 1 tab(s), Oral, BID, D/C current antibiotic and start this antibiotic JAMEL, X 5 days, # 10 tab(s), 0 Refill(s), Start Date: 08/19/15 9:23:00 CDT, Pharmacy: [facility] [place], [place] Special Instructions: D/C current antibiotic and [...] Refill(s), Start Date: 07/23/14 17:06:00 CDT, Pharmacy: [place], [place] Start Date: 07/23/14 Stop Date: 12/20/14 Status: CompletedDilaudid 2 mg oral tablet 1 tab(s), Oral, q6hr interval, PRN pain severe 8-10, # 30 tab(s), 0 Refill(s), Start Date: 09/03/15 13:34:00 CDT, Pharmacy: [place], [place] Start Date: 09/03/15 Stop Date: 09/26/15 Status: DiscontinuedDilaudid 2 mg oral tablet 1 tab(s), Oral, q6hr interval, PRN pain severe 8-10, # 30 tab(s), 0 Refill(s), Start Date: 08/15/15 11:40:00 CDT, Pharmacy: [place], [place] Start Date: 08/15/15 Stop Date: 09/03/15 Status: DiscontinuedDitropan 5 mg oral tablet 1 tab(s), Oral, TID, PRN bladder spasm, cramping, severe stent pain, # 30 tab(s) , 3 Refill(s), Start Date: 08/15/15 11:40:00 CDT, Pharmacy: [place], [place] Start Date: 08/15/15 Stop Date: 09/26/15 Status: DiscontinuedFlomax 0.4 mg oral capsule 1 cap(s), Oral, Daily, # 90 cap(s), 0 Refill(s), Start Date: 01/30/16 13:27:00 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, Pharmacy: [place], [place] Start Date: 01/30/16 Status: Orderedfluconazole 200 mg oral tablet 1 tab(s), Oral, Daily, # 7 tab(s), 0 Refill(s), Start Date: 08/14/15 12:44:00 CDT Start Date: 08/14/15 Stop Date: 08/15/15 Status: DiscontinuedHYDROcodone-acetaminophen 5 mg-325 mg oral tablet 1 tab(s), Oral, q6hr, # 24 tab(s), 0 Refill(s), Start Date: 09/26/15 11:36:00 CDT, Pharmacy: [place], [place] Start Date: 09/26/15 Status: OrderedHYDROcodone-acetaminophen 5 [...] Start Date: 07/23/14 16:52:00 CDT , Pharmacy: [place], [place] Start Date: 07/23/14 Stop Date: 12/20/14 Status: CompletedLevaquin 500 mg oral tablet 1 tab(s), Oral, Daily, # 7 tab(s), 0 Refill(s), Start Date: 08/15/15 11:40:00 CDT, Pharmacy: [place], [place] Start Date: 08/15/15 Stop Date: 09/03/15 Status: Discontinuedmeloxicam 15 mg oral tablet TAKE ONE TABLET BY MOUTH DAILY Special Instructions: TAKE ONE TABLET BY MOUTH DAILY Start Date: 04/29/16 Status: OrderedMiraLax oral powder for reconstitution 17 gm=, Oral, Daily, # 527 gm, 0 Refill(s), Start Date: 08/15/15 11:40:00 CDT, Pharmacy: [place], [place] Start Date: 08/15/15 Stop Date: 09/26/15 Status: Discontinuedsulfamethoxazole-trimethoprim 800 mg-160 mg oral tablet 1 tab(s), Oral, BID, # 14 tab(s), 0 Refill(s), Start Date: 08/14/15 12:45:00 CDT Start Date: 08/14/15 Stop Date: 08/15/15 Status: DiscontinuedtraMADol 50 mg oral tablet 1 tab(s), Oral, q4hr, PRN pain mild 1-3, # 30 tab(s), 0 Refill(s), Start Date: 08/15/15 11:40:00 CDT, Pharmacy: [place], [place] Start Date: 08/15/15 Stop Date: 09/26/15 [...] tab(s), 0 Refill(s), Start Date: 12/20/14 15:00:00 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, 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: [place], [place] Start Date: 12/20/14 Stop Date: 08/15/15 Status: DiscontinuedZofran 4 mg oral tablet 1 tab(s), Oral, q8hr interval, PRN as needed for nausea/vomiting, # 30 tab(s), 0 Refill(s), Start Date: 01/30/16 13:27:00 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, Pharmacy: [place], [place] Start Date: 01/30/16 Status: Ordered Results No data available for this section Immunizations No data available for this section Procedures Procedure Date Related Diagnosis Body Site Cystoureteroscopy With Lithotripsy (Right)1 09/03/15 Cystoureteroscopy With Lithotripsy (Right)2 08/15/15 Operative procedure on knee 10/2013 Breast augmentation 2001 Excision of cyst3 1auto-populated from documented surgical [id number] from documented surgical [id number] wrist Social History No data available for this section Assessment and Plan No data available for this section
[2016-09-24 03:34] VITALS: BP 136/90
== END 2016-09-24 03:43 | disposition home or self-care (01) ==
LOC: ER 02:13
DX: T78.40XA Allergy, unspecified, initial encounter (principal); Z87.442 Personal history of urinary calculi; F17.200 Nicotine dependence, unspecified, uncomplicated

== ENCOUNTER 2016-11-11 11:25 | Day surgery (SDC) | payer MEDICAID ==
[~2016-11-11 11:25] MED LIST changes: +KETOROLAC TROMETHAMINE 15 MG/ML VIAL IV PRN; +METOCLOPRAMIDE HCL 5 MG/ML VIAL IV PRN; +ONDANSETRON HCL/PF 2 MG/ML VIAL IV PRN
--- NOTE | 2016-11-11 13:28 | OR ---
Operative Report - Dictated Report Narrative: Location: Main OR Anesthesia: General Preoperative diagnosis: Left renal stone Postoperative diagnosis: same Procedure: #1 left ESWL Indications: 35-year-old female recurrent stone former and has a track record of growing stones very very quickly. Recent KUB with solitary left renal and 2 right renal stones. Discussed options and elected to proceed with ESWL fully without stent. Procedure: Consent obtained. Risks discussed. Brought to the operating room where general endotracheal anesthesia was induced. Timeout taken per protocol. Fluoroscopy was used to localize the stones in 2 planes. A total of 2000 shocks were delivered at a maximal energy of 24 kV. Stone was easily visible at the beginning of the case. There was radiographic evidence of fragmentation at the conclusion of the case such that stone became invisible. EBL: 0 cc Specimen: None Condition: Patient tolerated Important findings: Successful left ESWL with radiographic evidence of fragmentation. Follow Up: If she has no trouble with the left side i.e. no pain no hematuria no fevers and passes some fragments we will go ahead with right ESWL next Wednesday otherwise we'll give her another week as I do not want to put both kidneys at risk with fragments. [place] to avoid stent.
[2016-11-11 15:22] VITALS: BP 113/63
== END 2016-11-11 11:26 | disposition home or self-care (01) ==
LOC: AMB 11:25
PROVIDERS: ATTEND Urology
PROC: 0TF4XZZ Fragmentation in Left Kidney Pelvis, External Approach (ICD-10-PCS; principal; 2016-11-11 13:00)
DX: N20.0 Calculus of kidney (principal); E66.9 Obesity, unspecified; Z68.28 Body mass index [BMI] 28.0-28.9, adult; F17.200 Nicotine dependence, unspecified, uncomplicated

== ENCOUNTER 2016-11-14 01:37 | Emergency (ER) | payer MEDICAID ==
--- NOTE | 2016-11-14 01:55 | ERNOTE ---
Back Pain ER HPI Presenting Symptoms: hx chronic back pain Time Seen by Provider: 11/14/16 01:46 Source: patient, RN notes reviewed, past records Exam Limitations: no limitations Immunizations: IMMUNIZATION HX Immunizations Up to Date Yes History of Influenza Vaccine No Hx Pneumococcal Vaccination No Allergies/Adverse Reactions: Allergies venom-honey bee [bee venom (honey bee)] Allergy (Mild, Verified 11/14/16 01:43) ARMS SWELL UP metronidazole Adverse Reaction (Mild, Verified 11/14/16 01:43) Vomiting tramadol Adverse Reaction (Mild, Verified 11/14/16 01:43) Vomiting Home Medications: HOME MEDICATIONS HYDROmorphone HCL [Dilaudid] 2 mg PO Q6H PRN #24 11/11/16 [Last Taken 11/14/16 00:00] Orphenadrine Citrate [Norflex] 100 mg PO Q12H #20 tablet.sa 11/14/16 [Last Taken Unknown] Narrative: Patient complains of lower back pain that shoots up into her shoulders and down her buttock on the right side. She is currently under treatment with Dr. Rivers for kidney stones, and Dr. Cortez for chronic back pain. A physician has prescribed for her Dilaudid 2 mg PO q 6 Hours PRN pain, which she states is not enough to allow her to sleep. She states she is scheduled to have a kidney stone procedure done this coming week. Timing: Reports: constant, getting worse Quality/Severity: Reports: severe Location of pain: Reports: lower back, radiating to rt thigh/leg Activities at Onset: Reports: none Recent Injury?: Reports: no Modifying Factors - (Improves): Reports: nothing Modifying Factors - (Worsens): Reports: supine position, upright position, movement to right - Patient's Past Medical History Patient History - Medical: Kidney stone, Migraines, Other Patient History - Cardiac/Respiratory: No pertinent hx Patient History - Cancer: No Hx of Cancer Patient History - Surgical Procedures: Other, Urology Patient History - Other: None - Family History Mother Family History - Medical: No pertinent hx Family History - Cardiac/Respiratory: Angina, CHF, Hypertension Family History - Cancer: No pertinent family hx - Social History Living Situations: home Abuse History: No History of abuse Psych History: No pertinent hx Smoking Status: Current every day smoker Patient requests Smoking Cessation Consult: No Initiate information on Smoking Cessation: No - Immunizations Immunizations Up to Date: Yes Hx Pneumococcal Vaccination: No History of Influenza Vaccine: No Physical Exam - Physical Exam General Appearance: Present: wd/wn, moderate distress Head Exam: Present: normal inspection, no evidence of injury Eye Exam: Normal inspection: bilateral, PERRL: bilateral, EOMI: bilateral Ears, Nose, Throat: Present: normal ENT inspection, normal pharynx Neck: Present: normal inspection, nontender Respiratory: Present: no respiratory distress, normal breath sounds, no accessory muscle use Cardiovascular/Chest: Present: regular rate, rhythm, no murmur Gastrointestinal/Abdominal: Present: normal bowel sounds, nontender, nondistended, soft Back Exam: Present: no CVA tenderness, no vertebral tenderness, decreased range of motion, muscle spasm Extremity Exam: Present: decreased range of motion - right lower extremity Neurological Exam: Present: alert, oriented, normal mood/affect Skin Exam: Present: normal color, warm/dry ED Progress - Results and Orders Patient's Lab Results:: I have reviewed the patient's lab results. Results and Orders: Positive blood in urine, patient with known kidney stones, scheduled for lithotripsy this coming week. Positive for narcotics, on Dilaudid. - Vital Signs Patient's Vital Signs:: I have reviewed the patient's vital signs. Vital Signs: Vital Signs 11/14/16 01:40 Temperature 36.1 C L Pulse Rate 67 Respiratory 18 Rate Blood Pressure 171/91 O2 Sat by Pulse 97 Oximetry - Progress/Reassessment Chief Complaint: Back Pain Plan - Plan Plan: Norflex 60 mg IM; Toradol 60 mg IM - patient request. Departure Clinical Impression: Low back pain Qualifiers: Chronicity: chronic Back pain laterality: right Sciatica presence: with sciatica Sciatica laterality: sciatica of right side Qualified Code(s): M54.41 - Lumbago with sciatica, right side - Departure Disposition: Home self-care Condition: Good Instructions: Sciatica With [facility]hab[facility] Referrals: Curly Cortez MD [Courtesy Staff] - (call Wednesday to get in to be seen in the next 3-5 days) Prescriptions: Orphenadrine Citrate [Norflex] 100 mg PO Q12H #20 tablet.sa
[2016-11-14 02:23] LABS: Urine Bilirubin Negative (NEGATIVE); Urine Blood 250 /ul (NEGATIVE); Urine Ketone Negative (NEGATIVE); Urine Nitrite Negative (NEGATIVE); Urine Protein Negative (NEGATIVE); Urine Specific Gravity 1.015 SP.GR. (1.005-1.010); Urine Urobilinogen Normal (NORMAL)
[2016-11-14 02:24] LABS: Urine Appearance Clear; Urine Bacteria 1+; Urine Color Pale Yellow; Urine WBC None Seen /hpf (0-5)
[2016-11-14 02:25] LABS: Cocaine Ur Negative (NEGATIVE); Urine Barbiturate Negative (NEGATIVE); Urine Benzodiazepines Negative (NEGATIVE); Urine Opiates Positive (NEGATIVE); Urine PCP Negative (NEGATIVE); Urine THC Negative (NEGATIVE)
[2016-11-14] MEDS ORDERED: DIAZEPAM 5 MG/ML SYRG IM ONE (02:39)
[2016-11-14] MEDS ORDERED: ORPHENADRINE CITRATE 30 MG/ML VIAL IM ONE (02:41)
[2016-11-14] MEDS ORDERED: ORPHENADRINE CITRATE 30 MG/ML VIAL ONE (02:42)
[2016-11-14] MEDS ORDERED: KETOROLAC TROMETHAMINE 60 MG/2 ML VIAL IM ONE ×2 (03:07)
[2016-11-14 03:34] VITALS: BP 150/89
== END 2016-11-14 03:33 | disposition home or self-care (01) ==
LOC: ER 01:37
DX: M54.41 Lumbago with sciatica, right side (principal); F17.200 Nicotine dependence, unspecified, uncomplicated

== ENCOUNTER 2016-11-18 11:41 | Day surgery (SDC) | payer MEDICAID ==
[~2016-11-18 11:41] MED LIST changes: +MORPHINE SULFATE 2 MG/ML DISP.SYRIN IV PRN; -ONDANSETRON HCL/PF 2 MG/ML VIAL IV PRN; +oxyCODONE HCL/ACETAMINOPHEN 1 TAB TABLET PO PRN
[2016-11-18] MEDS ORDERED: RINGER'S SOLUTION,LACTATED 1,000 ML IV ONE (12:21)
--- NOTE | 2016-11-18 13:17 | OR ---
Operative Report - Dictated Report Narrative: Location: Main OR Anesthesia: General Preoperative diagnosis: right renal stone(s) 2 Postoperative diagnosis: same Procedure: #1 Right ESWL Indications: 35-year-old recurrent stone former with 2 renal stones visible on KUB. Treated left side last week without incident she has passed fragments without trouble. Returns today for similar management on the right side hopefully without stent. Procedure: Consent obtained. Risks discussed. Brought to the operating room where general endotracheal anesthesia was induced. Timeout taken per protocol. Fluoroscopy was used to localize the 2 stones in 2 planes. A total of 3000 shocks were delivered at a maximal energy of 24 kV. Initially 1000 shocks delivered to upper stone with some fragmentation. 650 shocks were delivered to lower stone before it turned to dust. Remaining 1350 shocks delivered to upper stone fragments. Stones were easily visible at the beginning of the case. There was radiographic evidence of fragmentation at the conclusion of the case. EBL: 0 cc Specimen: None Condition: Patient tolerated Important findings: Successful ESWL on the right with 2 separate stones both showing good fragmentation Follow Up: 6 months with KUB/UA. Starting potassiums citrate 15 mEq twice a day
[2016-11-18 15:36] VITALS: BP 149/86
== END 2016-11-18 11:42 | disposition home or self-care (01) ==
LOC: AMB 11:41
PROVIDERS: ATTEND Urology
PROC: 0TF3XZZ Fragmentation in Right Kidney Pelvis, External Approach (ICD-10-PCS; principal; 2016-11-18 13:00)
DX: N20.0 Calculus of kidney (principal); F17.200 Nicotine dependence, unspecified, uncomplicated; E66.9 Obesity, unspecified; Z68.28 Body mass index [BMI] 28.0-28.9, adult

== ENCOUNTER 2017-03-16 20:46 | Emergency (ER) | payer MEDICAID ==
[2017-03-16 21:03] VITALS: BP 127/71
[2017-03-16] MEDS ORDERED: KETOROLAC TROMETHAMINE 60 MG/2 ML VIAL IM ONE ×2 (21:23→21:29)
[2017-03-16] MEDS ORDERED: ORPHENADRINE CITRATE 30 MG/ML VIAL IM ONE (21:23)
--- NOTE | 2017-03-16 21:24 | ERNOTE ---
Back Pain ER HPI Date of Service: 03/16/17 Presenting Symptoms: hx chronic back pain Time Seen by Provider: 03/16/17 21:10 Source: patient Exam Limitations: no limitations Immunizations: IMMUNIZATION HX Immunizations Up to Date Yes History of Influenza Vaccine No Hx Pneumococcal Vaccination No Allergies/Adverse Reactions: Allergies venom-honey bee [bee venom (honey bee)] Allergy (Mild, Verified 03/16/17 21:03) ARMS SWELL UP metronidazole Adverse Reaction (Mild, Verified 03/16/17 21:03) Vomiting tramadol Adverse Reaction (Mild, Verified 03/16/17 21:03) Vomiting Home Medications: HOME MEDICATIONS Orphenadrine Citrate [Norflex] 100 mg PO Q12H #20 tablet.sa 11/14/16 [Last Taken Unknown] HYDROmorphone HCL [Dilaudid] 2 mg PO Q6H PRN #0 tablet 11/18/16 [Last Taken Unknown] Potassium Citrate [Urocit-K] 15 meq PO BID #60 tablet.er 11/18/16 [Last Taken Unknown] Diclofenac Sodium [Voltaren] 75 mg PO BID #60 tab 03/16/17 [Last Taken Unknown] Orphenadrine Citrate [Norflex] 100 mg PO Q12H #20 tablet.sa 03/16/17 [Last Taken Unknown] Narrative: Pt. comes in with c/o low back pain that radiates to the R side down the R buttock and R leg. Pt. has a hx of spinal stenosis in this area and chronic back pain that is not relieved with norco at home. Pt. states that she sees Dr Cortez for this and occasionally gets exacerbations in the pain but denies any change from previous exacerbations of the pain. Pt. denies any incontinence but does have RLE numbness that is not new for her. Timing: Reports: getting worse Quality/Severity: Reports: moderate, aching, cramping Location of pain: Reports: lower back, radiating to rt thigh/leg Activities at Onset: Reports: none Recent Injury?: Reports: no Modifying Factors - (Improves): Reports: nothing Modifying Factors - (Worsens): Reports: movement to right, movement to left, movement flexion. Denies: cough/deep breaths Associated Symptoms: Denies: fever/chills, constipation/incontinence, nausea/ vomiting, problems urinating, difficulty walking, numbess/weakness in legs Prior Treament: Reports: treated by physician, similar symptoms before. Denies : recently seen, recently hospitalized, currently on antibiotics Review of Systems - Review of Systems Constitutional: Present: no symptoms reported. Absent: fever, chills, weakness , fatigue, malaise EYE: Present: no symptoms reported. Absent: eye pain, double vision ENT: Present: no symptoms reported. Absent: nose pain, nose congestion, nasal drainage, sore throat Respiratory: Present: no symptoms reported. Absent: shortness of breath, cough , wheezing Cardiology: Present: no symptoms reported. Absent: chest pain, palpitations, edema Gastrointestinal/Abdominal: Present: no symptoms reported. Absent: nausea, vomiting, diarrhea, abdominal pain Genitourinary: Present: no symptoms reported. Absent: frequency, decreased urinary output Musculoskeletal: Present: back pain - low back pain radiates to R leg. Absent: neck pain, joint pain Skin: Present: no symptoms reported Neurological: Present: no symptoms reported. Absent: headache, dizziness/light- headedness, numbness, tingling All Other Systems: All systems neg except as marked - Patient's Past Medical History Patient History - Medical: Chronic Pain, Kidney stone, Migraines Patient History - Cardiac/Respiratory: No pertinent hx Patient History - Cancer: No Hx of Cancer Patient History - Surgical Procedures: Other, Urology Patient History - Other: None - Family History Mother Family History - Medical: No pertinent hx Family History - Cardiac/Respiratory: Angina, CHF, Hypertension Family History - Cancer: No pertinent family hx - Social History Abuse History: No History of abuse Psych History: No pertinent hx Smoking Status: Current every day smoker Have you smoked in the past 12 months: Yes Do you dip or chew tobacco: No Patient requests Smoking Cessation Consult: No Initiate information on Smoking Cessation: Yes Alcohol Use: occasionally Drug Use: none - Immunizations Immunizations Up to Date: Yes Hx Pneumococcal Vaccination: No History of Influenza Vaccine: No Physical Exam - Physical Exam General Appearance: Present: wd/wn, alert, no apparent distress Head Exam: Present: normal inspection, no evidence of injury Eye Exam: Normal inspection: bilateral Ears, Nose, Throat: Present: normal ENT inspection, normal pharynx Neck: Present: normal inspection, nontender, supple, full range of motion. Absent: lymphadenopathy (R), lymphadenopathy (L) Respiratory: Present: no respiratory distress, normal breath sounds, no accessory muscle use, chest nontender, lungs clear Cardiovascular/Chest: Present: regular rate, rhythm, no murmur, normal peripheral pulses Gastrointestinal/Abdominal: Present: normal bowel sounds, nontender, nondistended, soft, no organomegaly Back Exam: Present: vertebral tenderness - L4/L5, muscle spasm - R paraspinous and R buttock. Absent: decreased range of motion Extremity Exam: Present: normal inspection, non-tender, normal range of motion, no edema Neurological Exam: Present: alert, oriented, normal mood/affect, no motor/ sensory deficits Skin Exam: Present: normal color, warm/dry. Absent: pallor, skin rash ED Progress - Vital Signs Patient's Vital Signs:: I have reviewed the patient's vital signs. Vital Signs: Vital Signs 03/16/17 20:57 Temperature 36.3 C L Pulse Rate 83 Respiratory 16 Rate Blood Pressure 127/71 O2 Sat by Pulse 99 Oximetry - Progress/Reassessment Chief Complaint: Back Pain Progress:: Unchanged Departure Clinical Impression: Low back pain Qualifiers: Chronicity: chronic Back pain laterality: midline Sciatica presence: with sciatica Sciatica laterality: sciatica of right side Qualified Code(s): M54.41 - Lumbago with sciatica, right side; G89.29 - Other chronic pain; G89.29 - Other chronic pain - Departure Disposition: Home self-care Condition: Good Instructions: Chronic Pain, Sciatica, [id number] Additional Instructions: Please follow up with Dr Cortez or [email or web address] opinion physician in 2-3 days if not improved. Referrals: Gurwinder Hawthorne DO [Primary Care Provider] - Prescriptions: Diclofenac Sodium [Voltaren] 75 mg PO BID #60 tab Orphenadrine Citrate [Norflex] 100 mg PO Q12H #20 tablet.sa
[2017-03-16] MEDS ORDERED: ORPHENADRINE CITRATE 30 MG/ML VIAL ONE (21:29)
== END 2017-03-16 22:04 | disposition home or self-care (01) ==
LOC: ER 20:46
DX: G89.29 Other chronic pain; Z87.442 Personal history of urinary calculi; F17.200 Nicotine dependence, unspecified, uncomplicated; M54.41 Lumbago with sciatica, right side